=== PATIENT | female | born 1990 | race Caucasian/White ===

== ENCOUNTER 2017-07-31 13:25 | Emergency (ER) | payer OTHER ==
[~2017-07-31] VITALS: Ht 175.3 cm; Wt 127.0 kg
[~2017-07-31 13:25] MED LIST: BENTYL 20 MG TA20 M1 PO; COLD HEAD CONG1 EAC1 PO; FLEXERIL PO; HYDROCODONE-APA1 TA1 PO; MACROBID 100 M100 M1 PO; NAPROSYN500 MG PO; NOHOMEMEDICATIONS; PEPCID20 MG PO; PREDNISONE50 MG PO; TESSALON PERLE100 MG PO; TRAMADOL 50 MG50 MG PO; VISTARIL 25 MG25 M1
[2017-07-31] MEDS ORDERED: ZANTAC 150MG T150 MG PO (13:44)
[2017-07-31] MEDS ORDERED: TRAMADOL 50 MG50 MG PO (13:45)
[2017-07-31 14:19] LABS: ABSOLUTE BASOPHILS 0.2 thou/uL (0.0-0.2); ABSOLUTE EOSINOPHILS 0.2 thou/uL (0.0-0.7); ABSOLUTE LYMPHOCYTES 1.5 thou/uL (0.8-5.3); ABSOLUTE MONOCYTES 0.5 thou/uL (0.0-1.2); ABSOLUTE NEUTROPHILS 3.9 thou/uL (1.6-8.1); EOSINOPHILS 3.1 %; HEMATOCRIT 42.7 % (37.0-47.0); HEMOGLOBIN 14.7 gm/dL (12.0-15.0); LYMPHOCYTES 24.3 %; MCH 28.3 pg (26.0-34.0); MCHC 34.4 g/dL (28.0-37.0); MCV 82.3 fL (80.0-100.0); MONOCYTES 7.9 %; MPV 7.8 fl. (7.2-11.1); NUCLEATED RBCS 0 /100WBC; PLATELET COUNT* 246 thou/uL (150-400); POLYS 61.7 %; RBC 5.18 mil/uL (4.20-5.00); RDW-CV 13.5 % (10.5-14.5); WBC 6.4 thou/uL (4.0-11.0)
[2017-07-31 14:31] LABS: CALCIUM 8.9 mg/dL (8.5-10.1); CREATININE 0.8 mg/dL (0.6-1.3)
[2017-07-31 14:35] LABS: ALBUMIN 4.2 g/dL (3.4-5.0); TOTAL BILIRUBIN 0.3 mg/dL (<0.1-1.0); TOTAL PROTEIN 7.6 g/dL (6.4-8.2)
[2017-07-31 14:49] VITALS: BP 147/84
[2017-07-31 16:49] LABS: POTASSIUM 3.8 mmol/L (3.5-5.1)
--- NOTE | 2017-08-01 10:51 | EKG ---
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
== END 2017-07-31 14:50 | disposition home or self-care (01) ==
LOC: M.ERS 13:25
PROVIDERS: Physician Assistant
DX: F41.9 Anxiety disorder, unspecified (principal); R07.9 Chest pain, unspecified; Z90.49 Acquired absence of other specified parts of digestive tract; Z88.5 Allergy status to narcotic agent

== ENCOUNTER 2017-12-17 22:30 | Emergency (ER) | payer OTHER ==
[~2017-12-17] VITALS: Ht 165.1 cm; Wt 131.5 kg
[~2017-12-17 22:30] MED LIST changes: +ZANTAC 150MG T150 MG PO
[2017-12-17 23:35] VITALS: BP 126/71
== END 2017-12-17 23:35 | disposition home or self-care (01) ==
LOC: M.ERS 22:30
DX: S93.492A Sprain of other ligament of left ankle, initial encounter (principal); Z88.5 Allergy status to narcotic agent; X50.1XXA Overexertion from prolonged static or awkward postures, initial encounter; Y93.89 Activity, other specified; Y92.89 Other specified places as the place of occurrence of the external cause; Y99.8 Other external cause status

== ENCOUNTER 2018-04-17 04:40 | Emergency (ER) | payer OTHER ==
[~2018-04-17] VITALS: Ht 165.1 cm; Wt 127.0 kg
[2018-04-17 05:32] LABS: ABSOLUTE BASOPHILS 0.1 thou/uL (0.0-0.2); ABSOLUTE EOSINOPHILS 0.2 thou/uL (0.0-0.7); ABSOLUTE LYMPHOCYTES 1.3 thou/uL (0.8-5.3); ABSOLUTE MONOCYTES 0.5 thou/uL (0.0-1.2); HEMATOCRIT 40.6 % (37.0-47.0); HEMOGLOBIN 13.8 gm/dL (12.0-15.0); LYMPHOCYTES 18.6 %; MCH 27.8 pg (26.0-34.0); MCV 81.7 fL (80.0-100.0); MPV 7.6 fl. (7.2-11.1); NUCLEATED RBCS 0 /100WBC; PLATELET COUNT* 229 thou/uL (150-400); POLYS 70.4 %; RBC 4.97 mil/uL (4.20-5.00); RDW-CV 13.6 % (10.5-14.5); WBC 7.1 thou/uL (4.0-11.0)
[2018-04-17 05:39] LABS: ANION GAP 8 mmol/L (7-16); BUN 12 mg/dL (7-18); CALCIUM 8.4 mg/dL (8.5-10.1); CHLORIDE 105 mmol/L (98-107); CO2 24 mmol/L (21-32); CREATININE 0.7 mg/dL (0.6-1.3); GLUCOSE 140 mg/dL (70-99); POTASSIUM 3.7 mmol/L (3.5-5.1); SODIUM 137 mmol/L (136-145)
[2018-04-17 05:42] LABS: APTT 30.8 Seconds (25.0-31.3); PROTIME 10.6 Seconds (9.20-11.50)
[2018-04-17 05:46] LABS: ALBUMIN 3.7 g/dL (3.4-5.0); ALKALINE PHOSPHATASE 99 U/L (46-116); MAGNESIUM 1.9 mg/dL (1.8-2.4); SGOT 15 U/L (15-37); SGPT 28 U/L (30-65); TOTAL BILIRUBIN 0.4 mg/dL (<0.1-1.0); TOTAL PROTEIN 6.9 g/dL (6.4-8.2); TROPONIN-I LEVEL <0.06 ng/mL (<0.06)
[2018-04-17] MEDS ORDERED: CARAFATE 1 GM TA1 GM PO (06:02)
[2018-04-17] MEDS ORDERED: PRILOSEC 20 MG20 MG PO (06:02)
[2018-04-17 06:10] LABS: URINE BILIRUBIN NEGATIVE (Negative); URINE BLOOD NEGATIVE (Negative); URINE CLARITY CLEAR; URINE COLOR YELLOW; URINE GLUCOSE-RANDOM NEGATIVE (Negative); URINE KETONES NEGATIVE (Negative); URINE LEUKOCYTES-REFLEX NEGATIVE (Negative); URINE NITRITE-REFLEX NEGATIVE (Negative); URINE PROTEIN NEGATIVE (Negative); URINE UROBILINOGEN 0.2 E.U./dl (0.2-1.0)
[2018-04-17 06:16] VITALS: BP 135/73
--- NOTE | 2018-04-17 16:22 | EKG ---
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 04/17/18 [phone] [id number] Mohan Davis MD, FACC /EPI
== END 2018-04-17 06:18 | disposition home or self-care (01) ==
LOC: M.ERS 04:40
PROVIDERS: Personal Emergency Response Attendant
DX: K27.9 Peptic ulcer, site unspecified, unspecified as acute or chronic, without hemorrhage or perforation (principal); F41.9 Anxiety disorder, unspecified; Z88.6 Allergy status to analgesic agent

== ENCOUNTER 2020-05-04 02:49 | Emergency (ER) | payer OTHER ==
[~2020-05-04] VITALS: Ht 167.6 cm; Wt 133.8 kg
[~2020-05-04 02:49] MED LIST changes: +CARAFATE 1 GM TA1 GM PO; +PRILOSEC 20 MG20 MG PO
[2020-05-04] MEDS ORDERED: VENLAFAXINE HCL25 MG PO (03:09)
[2020-05-04 03:34] LABS: URINE BILIRUBIN NEGATIVE (Negative); URINE BLOOD 3+ (Negative); URINE CLARITY SL CLOUDY; URINE COLOR YELLOW; URINE GLUCOSE-RANDOM NEGATIVE (Negative); URINE KETONES NEGATIVE (Negative); URINE LEUKOCYTES-REFLEX NEGATIVE (Negative); URINE NITRITE-REFLEX NEGATIVE (Negative); URINE PROTEIN TRACE (Negative); URINE SPECIFIC GRAVITY 1.025 (1.005-1.030)
[2020-05-04 04:02] LABS: CASTS None Seen /LPF (None Seen); SQUAMOUS >10 Many /LPF (0-3)
[2020-05-04 04:03] LABS: BACTERIA-REFLEX 1-9 Few /HPF (None Seen); CRYSTALS None Seen /LPF (None Seen); URINE RBC >20 Many /HPF (0-2); URINE WBC-REFLEX None Seen /HPF (0-5)
[2020-05-04] MEDS ORDERED: HYDROCODON-ACE1 EAC8 PO (04:52)
[2020-05-04] MEDS ORDERED: ZOFRAN ODT4 MG PO (04:52)
[2020-05-04 05:35] VITALS: BP 127/67
== END 2020-05-04 05:40 | disposition home or self-care (01) ==
LOC: M.ERS 02:49
PROVIDERS: Emergency Medicine
DX: N13.2 Hydronephrosis with renal and ureteral calculous obstruction (principal); F41.9 Anxiety disorder, unspecified; Z90.49 Acquired absence of other specified parts of digestive tract; Z98.890 Other specified postprocedural states; Z79.899 Other long term (current) drug therapy; Z88.6 Allergy status to analgesic agent; Z88.5 Allergy status to narcotic agent

== ENCOUNTER 2020-05-22 00:03 | Emergency (ER) | payer OTHER ==
[~2020-05-22] VITALS: Ht 167.6 cm; Wt 131.5 kg
[~2020-05-22 00:03] MED LIST changes: +HYDROCODON-ACE1 EAC8 PO; +VENLAFAXINE HCL25 MG PO; +ZOFRAN ODT4 MG PO
[2020-05-22] MEDS ORDERED: XANAX 0.5 MG0.5 M1 PO (00:18)
[2020-05-22 00:26] LABS: URINE BILIRUBIN NEGATIVE (Negative); URINE BLOOD NEGATIVE (Negative); URINE CLARITY CLEAR; URINE COLOR YELLOW; URINE GLUCOSE-RANDOM NEGATIVE (Negative); URINE KETONES NEGATIVE (Negative); URINE LEUKOCYTES-REFLEX NEGATIVE (Negative); URINE NITRITE-REFLEX NEGATIVE (Negative); URINE PROTEIN NEGATIVE (Negative); URINE UROBILINOGEN 0.2 E.U./dl (0.2-1.0)
[2020-05-22] MEDS ORDERED: ZOFRAN ODT4 MG PO (02:37)
[2020-05-22] MEDS ORDERED: HYDROCODON-ACE1 EAC8 PO (02:37)
[2020-05-22 03:07] VITALS: BP 137/79
== END 2020-05-22 03:10 | disposition home or self-care (01) ==
LOC: M.ERS 00:03
PROVIDERS: Emergency Medicine
DX: N23 Unspecified renal colic (principal); Z88.5 Allergy status to narcotic agent; Z79.899 Other long term (current) drug therapy; Z90.49 Acquired absence of other specified parts of digestive tract; Z98.890 Other specified postprocedural states

== ENCOUNTER 2020-05-27 20:22 | Emergency (ER) | payer OTHER ==
[~2020-05-27] VITALS: Ht 167.6 cm; Wt 131.5 kg
[~2020-05-27 20:22] MED LIST changes: +XANAX 0.5 MG0.5 M1 PO
[2020-05-27 20:55] LABS: URINE BILIRUBIN NEGATIVE (Negative); URINE BLOOD 3+ (Negative); URINE CLARITY CLOUDY; URINE COLOR RED; URINE GLUCOSE-RANDOM NEGATIVE (Negative); URINE KETONES NEGATIVE (Negative); URINE LEUKOCYTES-REFLEX NEGATIVE (Negative); URINE NITRITE-REFLEX NEGATIVE (Negative); URINE PROTEIN 1+ (Negative); URINE SPECIFIC GRAVITY >= 1.030 (1.005-1.030); URINE UROBILINOGEN 0.2 E.U./dl (0.2-1.0)
[2020-05-27 20:59] LABS: SQUAMOUS >10 Many /LPF (0-3)
[2020-05-27 21:00] LABS: MUCUS 0-3 Light strn/LPF (None Seen); URINE RBC >20 Many /HPF (0-2)
[2020-05-27 21:01] LABS: CASTS None Seen /LPF (None Seen); URINE WBC-REFLEX 0-5 Rare /HPF (0-5)
[2020-05-27 21:03] LABS: CRYSTALS None Seen /LPF (None Seen)
[2020-05-27 21:49] LABS: HEMATOCRIT 41.2 % (37.0-47.0); MCH 27.6 pg (26.0-34.0); MCV 81.1 fL (80.0-100.0); MPV 7.1 fl. (7.2-11.1); NUCLEATED RBCS 0 /100WBC; PLATELET COUNT* 264 thou/uL (150-400); RBC 5.08 mil/uL (4.20-5.00); RDW-CV 14.1 % (10.5-14.5); WBC 14.2 thou/uL (4.0-11.0)
[2020-05-27 22:08] LABS: CALCIUM 8.6 mg/dL (8.5-10.1); CREATININE 0.9 mg/dL (0.6-1.3); POTASSIUM 3.4 mmol/L (3.5-5.1)
[2020-05-27 22:13] LABS: ALBUMIN 3.8 g/dL (3.4-5.0); TOTAL BILIRUBIN 0.3 mg/dL (<0.1-1.0); TOTAL PROTEIN 6.7 g/dL (6.4-8.2)
[2020-05-27 22:30] LABS: ABSOLUTE EOSINOPHILS 0.1 thou/uL (0.0-0.7); ABSOLUTE LYMPHOCYTES 1.1 thou/uL (0.8-5.3); ABSOLUTE MONOCYTES 0.4 thou/uL (0.0-1.2); ABSOLUTE NEUTROPHILS 12.5 thou/uL (1.6-8.1)
[2020-05-27 22:31] LABS: GIANT PLATELETS RARE; PLATELET ESTIMATE ADEQUATE
[2020-05-27] MEDS ORDERED: PYRIDIUM100 M1 PO (22:44)
[2020-05-27] MEDS ORDERED: NORCO 7.5-3251 EACH PO (22:44)
[2020-05-27 22:56] VITALS: BP 166/74
[2020-05-28 00:11] LABS: AMP/METHAMP Negative (Negative); BARBITURATES Negative (Negative); BENZODIAZEPINES Negative (Negative); COCAINE Negative (Negative); METHADONE Negative (Negative); OPIATES POSITIVE (Negative); PCP Negative (Negative); THC Negative (Negative)
== END 2020-05-27 22:56 | disposition home or self-care (01) ==
LOC: M.ERS 20:22
PROVIDERS: Emergency Medicine; Nurse Practitioner Family
DX: K59.00 Constipation, unspecified (principal); E66.9 Obesity, unspecified; Z79.899 Other long term (current) drug therapy; Z88.6 Allergy status to analgesic agent; Z90.49 Acquired absence of other specified parts of digestive tract; Z87.442 Personal history of urinary calculi

== ENCOUNTER 2021-06-29 21:01 | Emergency (ER) | payer OTHER, MEDICAID ==
[~2021-06-29] VITALS: Ht 165.1 cm; Wt 135.2 kg
[~2021-06-29 21:01] MED LIST changes: +NORCO 7.5-3251 EACH PO; +PYRIDIUM100 M1 PO
[2021-06-29 23:48] LABS: URINE BILIRUBIN NEGATIVE (Negative); URINE BLOOD NEGATIVE (Negative); URINE CLARITY CLEAR; URINE COLOR YELLOW; URINE GLUCOSE-RANDOM 1+ (Negative); URINE KETONES NEGATIVE (Negative); URINE LEUKOCYTES 1+ (Negative); URINE NITRITE NEGATIVE (Negative); URINE PROTEIN NEGATIVE (Negative); URINE SPECIFIC GRAVITY 1.025 (1.005-1.030); URINE UROBILINOGEN 0.2 E.U./dl (0.2-1.0)
[2021-06-30 00:16] LABS: SQUAMOUS >10 Many /LPF (0-3)
[2021-06-30 00:17] LABS: CASTS None Seen /LPF (None Seen); MUCUS 0-3 Light strn/LPF (None Seen)
[2021-06-30 00:19] LABS: CRYSTALS None Seen /LPF (None Seen); URINE RBC 0-2 Rare /HPF (0-2)
[2021-06-30 00:20] LABS: CALCIUM 8.5 mg/dL (8.5-10.1); CREATININE 0.8 mg/dL (0.6-1.3); POTASSIUM 3.7 mmol/L (3.5-5.1)
[2021-06-30 00:25] LABS: ALBUMIN 4.3 g/dL (3.4-5.0); TOTAL BILIRUBIN 0.4 mg/dL (<0.1-1.0); TOTAL PROTEIN 7.9 g/dL (6.4-8.2)
[2021-06-30 00:29] LABS: ABSOLUTE BASOPHILS 0.1 thou/uL (0.0-0.2); ABSOLUTE EOSINOPHILS 0.2 thou/uL (0.0-0.7); ABSOLUTE LYMPHOCYTES 2.4 thou/uL (0.8-5.3); ABSOLUTE MONOCYTES 0.5 thou/uL (0.0-1.2); ABSOLUTE NEUTROPHILS 3.9 thou/uL (1.6-8.1); EOSINOPHILS 3.2 %; HEMATOCRIT 44.5 % (37.0-47.0); HEMOGLOBIN 15.3 gm/dL (12.0-15.0); MCH 27.5 pg (26.0-34.0); MCHC 34.3 g/dL (28.0-37.0); MCV 80.3 fL (80.0-100.0); MONOCYTES 6.9 %; MPV 7.4 fl. (7.2-11.1); NUCLEATED RBCS 0 /100WBC; PLATELET COUNT* 303 thou/uL (150-400); POLYS 54.9 %; RBC 5.54 mil/uL (4.20-5.00); RDW-CV 13.9 % (10.5-14.5); WBC 7.2 thou/uL (4.0-11.0)
[2021-06-30] MEDS ORDERED: HYDROCODON-ACE1 EAC7 PO (01:11)
[2021-06-30] MEDS ORDERED: TORADOL 10 MG T10 MG PO (01:11)
[2021-06-30] MEDS ORDERED: CEPHALEXIN500 MG PO (01:14)
[2021-06-30 01:29] VITALS: BP 169/105
== END 2021-06-30 01:30 | disposition home or self-care (01) ==
LOC: M.ERS 21:01
PROVIDERS: Personal Emergency Response Attendant; Physician Assistant
DX: R10.9 Unspecified abdominal pain (principal); R30.0 Dysuria; Z87.442 Personal history of urinary calculi; Z90.49 Acquired absence of other specified parts of digestive tract; Z98.890 Other specified postprocedural states; F41.9 Anxiety disorder, unspecified; E66.9 Obesity, unspecified; Z68.42 Body mass index [BMI] 45.0-49.9, adult; Z79.899 Other long term (current) drug therapy; Z88.6 Allergy status to analgesic agent; Z88.5 Allergy status to narcotic agent